=== PATIENT | female | born 1985 | race Asian ===

== ENCOUNTER 2017-04-09 20:30 | Observation (INO) | payer OTHER ==
[~2017-04-09] VITALS: Ht 180.3 cm; Wt 141.0 kg
[2017-04-09 21:00] VITALS: BP 144/78
[2017-04-09 23:02] LABS: ASPARTATE AMINO TRANSFERASE 19 U/L (15-37); BLOOD UREA NITROGEN 9 mg/dL (7-18)
== END 2017-04-09 23:50 | disposition home or self-care (01) ==
LOC: LDOP 20:30 → LDIP 22:15
PROVIDERS: ADMIT Obstetrics & Gynecology Maternal & Fetal Medicine; ATTEND Obstetrics & Gynecology Maternal & Fetal Medicine
DX: O46.93 Antepartum hemorrhage, unspecified, third trimester (principal); O26.893 Other specified pregnancy related conditions, third trimester; R03.0 Elevated blood-pressure reading, without diagnosis of hypertension; O12.03 Gestational edema, third trimester; Z3A.37 37 weeks gestation of pregnancy
CPT/HCPCS: 36415; 59025; 80053; 81001; 82570; 84156; 84550; 85025; G0378

== ENCOUNTER 2017-12-26 05:52 | Inpatient (IN) | payer OTHER ==
[~2017-12-26] VITALS: Ht 180.3 cm; Wt 134.5 kg
[2017-12-26] MEDS ORDERED: LACTATED RINGERS 1,000 ML IV SCH (05:57)
[2017-12-26] MEDS ORDERED: OXYTOCIN 30U/ 0.9% NaCL 500ML 500 ML IV PRN (05:57)
[2017-12-26] MEDS ORDERED: OXYTOCIN 30U/ 0.9% NaCL 500ML 500 ML IV ONE (05:57)
[2017-12-26] MEDS ORDERED: FENTANYL PF 100 MCG/2ML IVPush PRN ×2 (06:00)
[2017-12-26] MEDS ORDERED: RHOGAM FROM BLOOD BANK 1 NOTE EA IM/IV PRN (06:00)
[2017-12-26] MEDS ORDERED: MISOPROSTOL 25 MCG TABLET VG SCH (06:00)
[2017-12-26] MEDS ORDERED: ACETAMINOPHEN 325 MG TABLET PO PRN (06:00)
[2017-12-26] MEDS ORDERED: CALCIUM CARBONATE 500 MG TAB.CHEW PO PRN (06:00)
[2017-12-26] MEDS ORDERED: ONDANSETRON 2MG/ML, 2ML IVPush PRN (06:00)
[2017-12-26 06:11] VITALS: BP 127/75
[2017-12-26] MEDS ORDERED: MISOPROSTOL 25 MCG TABLET ONE (06:32)
[2017-12-26 06:41] LABS: BASOPHILS # (AUTO) 0.02 x10^3/uL (0-0.1); BASOPHILS % (AUTO) 0 % (0-1); EOSINOPHILS # (AUTO) 0.18 x10^3/uL (0-0.4); EOSINOPHILS % (AUTO) 2 % (1-7); LYMPHOCYTES % (AUTO) 17 % (22-44); MD NO; MEAN CORPUSCULAR HEMOGLOBIN 28.4 pg (27.0-34.8); MEAN CORPUSCULAR HGB CONC 33.7 g/dL (32.4-35.8); MEAN CORPUSCULAR VOLUME 84.2 fL (80-100); MEAN PLATELET VOLUME 7.6 fL (7.4-10.4); MONOCYTES # (AUTO) 0.51 x10^3/uL (0.2-0.8); MONOCYTES % (AUTO) 5 % (2-9); NEUTROPHILS # (AUTO) 7.55 x10^3/uL (1.8-6.8); NEUTROPHILS % (AUTO) 76 % (42-75); PLATELET COUNT 271 x10^3/uL (130-400); RED BLOOD COUNT 4.61 x10^6/uL (3.82-5.3); RED CELL DISTRIBUTION WIDTH 13.5 % (9.6-15.2)
[2017-12-26] MEDS ORDERED: MISOPROSTOL 200 MCG TABLET ONE ×2 (06:53→18:36)
[2017-12-26] MEDS ORDERED: MISOPROSTOL 25 MCG TABLET VG PRN (07:00)
[2017-12-26 07:26] LABS: AMPHETAMINE SCREEN, URINE Negative (Negative); BARBITURATE SCREEN, URINE Negative (Negative); BENZODIAZEPINE SCREEN, URINE Negative (Negative); CANNABINOID SCREEN, URINE Negative (Negative); COCAINE SCREEN, URINE Negative (Negative); METHADONE SCREEN, URINE Negative (Negative); OPIATE SCREEN, URINE Negative (Negative)
[2017-12-26] MEDS ORDERED: OXYTOCIN 30U/ 0.9% NaCL 500ML 0 ML ONE (11:23)
[2017-12-26] MEDS ORDERED: PREN1TAB10 PO (15:27)
[2017-12-26] MEDS ORDERED: IBUP-1222 PO (15:29)
[2017-12-26] MEDS ORDERED: FLU VACC QS2017-18 (36MOS+) UP/PF 0.5 ML IM-VACC ONE (16:00)
[2017-12-26] MEDS ORDERED: IBUPROFEN 600 MG TABLET ONE (16:54)
[2017-12-26] MEDS: IBUPROFEN 600 MG TABLET PO PRN (16:56)
[2017-12-26] MEDS ORDERED: MISOPROSTOL 200 MCG TABLET PR ONE (18:30)
[2017-12-26] MEDS: AMOXICILLIN/CLAV 875-125MG TABLET PO SCH (18:50)
[2017-12-27 06:31] LABS: BASOPHILS % (AUTO) 0 % (0-1); EOSINOPHILS # (AUTO) 0.36 x10^3/uL (0-0.4); EOSINOPHILS % (AUTO) 4 % (1-7); LYMPHOCYTES # (AUTO) 1.93 x10^3/uL (1-3.4); LYMPHOCYTES % (AUTO) 24 % (22-44); MD NO; MEAN CORPUSCULAR HEMOGLOBIN 28.4 pg (27.0-34.8); MEAN CORPUSCULAR HGB CONC 33.6 g/dL (32.4-35.8); MEAN CORPUSCULAR VOLUME 84.6 fL (80-100); MEAN PLATELET VOLUME 8.1 fL (7.4-10.4); MONOCYTES # (AUTO) 0.46 x10^3/uL (0.2-0.8); MONOCYTES % (AUTO) 6 % (2-9); NEUTROPHILS # (AUTO) 5.32 x10^3/uL (1.8-6.8); NEUTROPHILS % (AUTO) 66 % (42-75); PLATELET COUNT 272 x10^3/uL (130-400); RED BLOOD COUNT 4.39 x10^6/uL (3.82-5.3); RED CELL DISTRIBUTION WIDTH 13.3 % (9.6-15.2)
[2017-12-27] MEDS: AMOXICILLIN/CLAV 875-125MG TABLET PO SCH (06:49)
[2017-12-27] MEDS ORDERED: MISOPROSTOL 200 MCG TABLET ONE (09:17)
[2017-12-27] MEDS ORDERED: MISOPROSTOL 200 MCG TABLET PR ONE (09:30)
[2017-12-27] MEDS ORDERED: IBUPROFEN 600 MG TABLET ONE (10:50)
[2017-12-27] MEDS: IBUPROFEN 600 MG TABLET PO PRN (10:52)
== END 2017-12-27 11:00 | disposition home or self-care (01) | DRG 775 ==
LOC: LDIP 05:52
PROVIDERS: ADMIT Obstetrics & Gynecology Maternal & Fetal Medicine; ATTEND Obstetrics & Gynecology Maternal & Fetal Medicine
PROC: 10E0XZZ Delivery of Products of Conception, External Approach (ICD-10-PCS; principal; 2017-12-26)
DX: O36.4XX0 Maternal care for intrauterine death, not applicable or unspecified (principal); Z37.1 Single stillbirth; Z83.3 Family history of diabetes mellitus; Z3A.15 15 weeks gestation of pregnancy
CPT/HCPCS: 36415; 80307; 85025; 86850; 86900; 90686; J7120

== ENCOUNTER 2018-05-19 13:30 | Emergency (ER) | payer OTHER ==
[~2018-05-19] VITALS: Ht 180.3 cm; Wt 129.9 kg
[~2018-05-19 13:30] MED LIST: IBUP-1222 PO; PREN1TAB10 PO
[2018-05-19 13:34] VITALS: BP 143/82
[2018-05-19 14:20] LABS: MICROSCOPIC AUTO
[2018-05-19 14:21] LABS: CULTURE INDICATED? YES
== END 2018-05-19 14:58 | disposition home or self-care (01) ==
LOC: ED 14:52
DX: N30.01 Acute cystitis with hematuria (principal)
CPT/HCPCS: 81001; 87086; 99284

== ENCOUNTER 2018-05-21 20:35 | Observation (INO) | payer OTHER ==
[~2018-05-21] VITALS: Ht 180.3 cm; Wt 128.2 kg
[2018-05-21 21:51] LABS: BASOPHILS # (AUTO) 0.04 x10^3/uL (0-0.1); BASOPHILS % (AUTO) 0 % (0-1); EOSINOPHILS # (AUTO) 0.37 x10^3/uL (0-0.4); EOSINOPHILS % (AUTO) 4 % (1-7); LYMPHOCYTES # (AUTO) 3.17 x10^3/uL (1-3.4); LYMPHOCYTES % (AUTO) 30 % (22-44); MD NO; MEAN CORPUSCULAR HEMOGLOBIN 26.9 pg (27.0-34.8); MEAN CORPUSCULAR HGB CONC 32.9 g/dL (32.4-35.8); MEAN CORPUSCULAR VOLUME 81.9 fL (80-100); MEAN PLATELET VOLUME 7.7 fL (7.4-10.4); MONOCYTES # (AUTO) 0.79 x10^3/uL (0.2-0.8); MONOCYTES % (AUTO) 8 % (2-9); NEUTROPHILS # (AUTO) 6.15 x10^3/uL (1.8-6.8); NEUTROPHILS % (AUTO) 59 % (42-75); PLATELET COUNT 331 x10^3/uL (130-400); RED BLOOD COUNT 4.97 x10^6/uL (3.82-5.3)
[2018-05-21 22:04] LABS: ALBUMIN 3.9 g/dL (3.4-5.0); ANION GAP 5 mmol/L (5-15); CALCIUM 8.8 mg/dL (8.5-10.1); CHLORIDE 103 mmol/L (98-107); CREATININE 0.94 mg/dL (0.55-1.02)
[2018-05-21 22:08] LABS: TROPONIN I < 0.015 ng/mL (0.000-0.045)
[2018-05-22] MEDS ORDERED: LABETALOL 5MG/ML, 20ML IVPush PRN
[2018-05-22] MEDS ORDERED: NITROGLYCERIN 0.4 MG BOTTLE (25 TABS) SL PRN ×2
[2018-05-22] MEDS ORDERED: DOCUSATE 100 MG CAPSULE PO PRN
[2018-05-22] MEDS ORDERED: NITROGLYCERIN 0.4 MG/SPRAY SL PRN
[2018-05-22] MEDS ORDERED: ONDANSETRON 2MG/ML, 2ML IVPush PRN
[2018-05-22] MEDS ORDERED: morphine SULFATE 10 MG/ML, 1ML IVPush PRN
[2018-05-22] MEDS ORDERED: ACETAMINOPHEN 325 MG TABLET PO PRN
[2018-05-22 00:21] LABS: PROTHROMBIN TIME 10.4 Seconds (9.6-11.5)
[2018-05-22 01:27] VITALS: BP 136/72
[2018-05-22 04:00] VITALS: BP 120/80
[2018-05-22 05:58] LABS: BASOPHILS # (AUTO) 0.02 x10^3/uL (0-0.1); BASOPHILS % (AUTO) 0 % (0-1); EOSINOPHILS # (AUTO) 0.35 x10^3/uL (0-0.4); EOSINOPHILS % (AUTO) 5 % (1-7); LYMPHOCYTES # (AUTO) 2.21 x10^3/uL (1-3.4); LYMPHOCYTES % (AUTO) 30 % (22-44); MD NO; MEAN CORPUSCULAR HGB CONC 32.9 g/dL (32.4-35.8); MEAN CORPUSCULAR VOLUME 81.9 fL (80-100); MEAN PLATELET VOLUME 7.7 fL (7.4-10.4); MONOCYTES % (AUTO) 7 % (2-9); NEUTROPHILS # (AUTO) 4.26 x10^3/uL (1.8-6.8); NEUTROPHILS % (AUTO) 58 % (42-75); PLATELET COUNT 314 x10^3/uL (130-400); RED BLOOD COUNT 4.86 x10^6/uL (3.82-5.3)
[2018-05-22 06:05] LABS: ANION GAP 8 mmol/L (5-15); CHLORIDE 108 mmol/L (98-107)
[2018-05-22 06:13] LABS: CALCIUM 8.8 mg/dL (8.5-10.1); CHOL/HDL RATIO 2.7; CHOLESTEROL, TOTAL 130 mg/dL (140-239); CREATININE 0.83 mg/dL (0.55-1.02); HDL CHOL % 38 % (28-40); HDL CHOLESTEROL (DIRECT) 49 mg/dL (40-60); LDL CHOLESTEROL,CALCULATED 67 mg/dL (54-169); LDL/HDL RATIO 1.4 (0.5-3.0); THYROID STIMULATING HORMONE 0.851 mIU/L (0.358-3.740); TRIGLYCERIDES 68 mg/dL (50-200); VLDL CHOLESTEROL 14 mg/dL (0-25)
[2018-05-22 07:09] LABS: HEMOGLOBIN A1C 5.2 % (4.2-6.3)
[2018-05-22 07:13] VITALS: BP 119/73
[2018-05-22 07:56] LABS: TROPONIN I < 0.015 ng/mL (0.000-0.045)
[2018-05-22] MEDS: HEPARIN 5,000 UNITS/ML, 1ML SQ SCH ×3 (08:00→15:47)
[2018-05-22] MEDS ORDERED: REGADENOSON 0.4 MG/5 ML SYRINGE ONE (09:07)
[2018-05-22 13:36] VITALS: BP 121/78
== END 2018-05-22 19:00 | disposition home or self-care (01) ==
LOC: ED 21:22 → EDIP 23:48 → 5SO 05-22 01:18
PROVIDERS: ADMIT Internal Medicine; ATTEND Hospitalist
DX: M54.5 Low back pain (principal); E87.1 Hypo-osmolality and hyponatremia; E87.6 Hypokalemia; N39.0 Urinary tract infection, site not specified; R94.31 Abnormal electrocardiogram [ECG] [EKG]; Z83.3 Family history of diabetes mellitus; Z79.899 Other long term (current) drug therapy
CPT/HCPCS: 36415; 71046; 78452; 80048; 80061; 82040; 83036; 83735; 84100; 84443; 84484; 84703; 85025; 85379; 85610; 93005; 93017; 99285; A9502; C9898; G0378; J2785

== ENCOUNTER 2018-08-16 16:51 | Emergency (ER) | payer OTHER ==
[~2018-08-16] VITALS: Ht 180.3 cm; Wt 122.0 kg
[2018-08-16 16:59] VITALS: BP 143/64
[2018-08-16] MEDS ORDERED: MICROFIBRILLAR COLLAGEN 0.5GM/PACK TP ONE (17:30)
[2018-08-16] MEDS ORDERED: BUPIVACAINE 0.25% INFIL ONE (17:30)
== END 2018-08-16 18:58 | disposition home or self-care (01) ==
LOC: ED 17:15
DX: S62.661B Nondisplaced fracture of distal phalanx of left index finger, initial encounter for open fracture (principal); X58.XXXA Exposure to other specified factors, initial encounter; Y93.89 Activity, other specified; Y92.89 Other specified places as the place of occurrence of the external cause; Y99.8 Other external cause status
CPT/HCPCS: 99284

== ENCOUNTER 2019-12-16 05:11 | Inpatient (IN) | payer OTHER ==
[~2019-12-16] VITALS: Ht 180.3 cm; Wt 154.5 kg
[2019-12-16] MEDS ORDERED: OXYTOCIN 30U/ 0.9% NaCL 500ML 500 ML IV ONE (05:17)
[2019-12-16] MEDS ORDERED: D5%-LACTATED RINGERS 1,000 ML IV SCH (05:17)
[2019-12-16 05:27] VITALS: BP 129/67
[2019-12-16] MEDS ORDERED: TERBUTALINE 1 MG/ML, 1ML SQ PRN (05:30)
[2019-12-16] MEDS ORDERED: CALCIUM CARBONATE 500 MG TAB.CHEW PO PRN (05:30)
[2019-12-16] MEDS ORDERED: FENTANYL PF 100 MCG/2ML IVPush PRN (05:30)
[2019-12-16] MEDS ORDERED: MISOPROSTOL 25 MCG TABLET VG PRN (05:30)
[2019-12-16] MEDS ORDERED: PLEASE ENTER HEIGHT AND WEIGHT MC SCH (05:30)
[2019-12-16] MEDS ORDERED: ONDANSETRON 2MG/ML, 2ML IVPush PRN (05:30)
[2019-12-16] MEDS ORDERED: TERBUTALINE 1 MG/ML, 1ML IVPush PRN (05:30)
[2019-12-16] MEDS ORDERED: FENTANYL PF 100 MCG/2ML IV PRN (05:30)
[2019-12-16] MEDS ORDERED: PREN-3 PO (05:33)
[2019-12-16] MEDS ORDERED: MISOPROSTOL 25 MCG TABLET ONE ×2 (05:38→10:14)
[2019-12-16] MEDS ORDERED: OXYTOCIN 30U/ 0.9% NaCL 500ML 500 ML ONE ×2 (05:38→16:02)
[2019-12-16] MEDS ORDERED: LIDOCAINE 1%, 20ML ONE (05:38)
[2019-12-16] MEDS ORDERED: MISOPROSTOL 200 MCG TABLET ONE (05:38)
[2019-12-16] MEDS: PENICILLIN GK 2,500,000 UNITS in DEXTROSE 5% 100 ML IVPB SCH ×4 (05:48→22:00)
[2019-12-16] MEDS: LACTATED RINGERS 1,000 ML IV SCH ×2 (05:48→11:45)
[2019-12-16] MEDS ORDERED: PENICILLIN GK 5,000,000 UNITS in DEXTROSE 5% 100 ML IVPB ONE (06:00)
[2019-12-16] MEDS ORDERED: NEWBORN KIT ONE (06:00)
[2019-12-16 06:01] LABS: BASOPHILS # (AUTO) 0.01 x10^3/uL (0-0.1); BASOPHILS % (AUTO) 0 % (0-1); EOSINOPHILS # (AUTO) 0.12 x10^3/uL (0-0.4); EOSINOPHILS % (AUTO) 2 % (1-7); LYMPHOCYTES # (AUTO) 1.65 x10^3/uL (1-3.4); LYMPHOCYTES % (AUTO) 25 % (22-44); MD NO; MEAN CORPUSCULAR HEMOGLOBIN 29.5 pg (27.0-34.8); MEAN CORPUSCULAR HGB CONC 33.2 g/dL (32.4-35.8); MEAN CORPUSCULAR VOLUME 88.9 fL (80-100); MEAN PLATELET VOLUME 7.9 fL (7.4-10.4); MONOCYTES # (AUTO) 0.38 x10^3/uL (0.2-0.8); MONOCYTES % (AUTO) 6 % (2-9); NEUTROPHILS # (AUTO) 4.41 x10^3/uL (1.8-6.8); NEUTROPHILS % (AUTO) 67 % (42-75); PLATELET COUNT 202 x10^3/uL (130-400); RED BLOOD COUNT 4.13 x10^6/uL (3.82-5.3); RED CELL DISTRIBUTION WIDTH 13.9 % (9.6-15.2)
[2019-12-16] MEDS ORDERED: FLU VACC QS2019-20 36MOS UP/PF 0.5 ML IM-VACC ONE (07:00)
[2019-12-16] MEDS ORDERED: OXYTOCIN 30U/ 0.9% NaCL 500ML 500 ML IV PRN (10:29)
[2019-12-16] MEDS: OXYTOCIN 30U/ 0.9% NaCL 500ML 500 ML IV SCH (15:38)
[2019-12-16] MEDS ORDERED: DIPH,PERTUSS(ACELL),TET VAC/PF NC IM-VACC PRN (16:00)
[2019-12-16] MEDS ORDERED: SIMETHICONE 80 MG CHEW TAB PO PRN (16:00)
[2019-12-16] MEDS ORDERED: CARBOPROST TROMETHAMINE 250 MCG/ML, 1ML IM PRN (16:00)
[2019-12-16] MEDS ORDERED: MISOPROSTOL 200 MCG TABLET PR PRN (16:00)
[2019-12-16] MEDS ORDERED: ACETAMINOPHEN 325 MG TABLET PO PRN ×2 (16:00)
[2019-12-16] MEDS ORDERED: OXYcodone/APAP 5/325MG TABLET PO PRN ×2 (16:00)
[2019-12-16] MEDS ORDERED: DOCUSATE 100 MG CAPSULE PO PRN (16:00)
[2019-12-16] MEDS ORDERED: IBUPROFEN 600 MG TABLET ONE (16:02)
[2019-12-16] MEDS: IBUPROFEN 600 MG TABLET PO PRN (16:05)
[2019-12-16 17:27] VITALS: BP 127/59
[2019-12-16 20:03] VITALS: BP 125/75
[2019-12-17] VITALS: BP 110/73
[2019-12-17] MEDS: IBUPROFEN 600 MG TABLET PO PRN (00:11)
[2019-12-17 01:10] LABS: BASOPHILS # (AUTO) 0.03 x10^3/uL (0-0.1); BASOPHILS % (AUTO) 0 % (0-1); EOSINOPHILS # (AUTO) 0.14 x10^3/uL (0-0.4); EOSINOPHILS % (AUTO) 1 % (1-7); LYMPHOCYTES % (AUTO) 19 % (22-44); MD NO; MEAN CORPUSCULAR HEMOGLOBIN 29.4 pg (27.0-34.8); MEAN CORPUSCULAR HGB CONC 33.3 g/dL (32.4-35.8); MEAN CORPUSCULAR VOLUME 88.1 fL (80-100); MEAN PLATELET VOLUME 8.2 fL (7.4-10.4); MONOCYTES # (AUTO) 0.77 x10^3/uL (0.2-0.8); MONOCYTES % (AUTO) 7 % (2-9); NEUTROPHILS # (AUTO) 8.72 x10^3/uL (1.8-6.8); NEUTROPHILS % (AUTO) 73 % (42-75); PLATELET COUNT 204 x10^3/uL (130-400); RED BLOOD COUNT 4.27 x10^6/uL (3.82-5.3); RED CELL DISTRIBUTION WIDTH 14.2 % (9.6-15.2)
[2019-12-17] MEDS: OXYTOCIN 30U/ 0.9% NaCL 500ML 500 ML IV SCH ×2 (01:38→11:38)
[2019-12-17] MEDS: PENICILLIN GK 2,500,000 UNITS in DEXTROSE 5% 100 ML IVPB SCH ×3 (02:00→10:00)
[2019-12-17 04:05] VITALS: BP 118/71
[2019-12-17 08:50] VITALS: BP 121/61
[2019-12-17] MEDS ORDERED: PRENATAL VIT/IRON/FA 1 EACH TABLET PO SCH (09:00)
[2019-12-17 12:30] VITALS: BP 122/68
== END 2019-12-17 16:00 | disposition home or self-care (01) | DRG 807 ==
LOC: LDIP 05:11 → 2NW 17:42
PROVIDERS: ADMIT Obstetrics & Gynecology Maternal & Fetal Medicine; ATTEND Obstetrics & Gynecology Maternal & Fetal Medicine
PROC: 10E0XZZ Delivery of Products of Conception, External Approach (ICD-10-PCS; principal; 2019-12-16)
DX: O80 Encounter for full-term uncomplicated delivery (principal); Z37.0 Single live birth; Z3A.39 39 weeks gestation of pregnancy
CPT/HCPCS: 36415; 85025; 86592; 86850; 86900; 90686; G0378; J2540; J2590; J7120